=== PATIENT | female | born 1955 | race Two or more races ===

== ENCOUNTER 2021-01-26 06:24 | Inpatient (IN) | payer MEDICAID ==
[2021-01-22 10:43] LABS: Basophils # (auto) 0.1 10 ^3/uL (0-0.2); Basophils % (auto) 0.7 % (0.0-2.0); Eosinophils # (auto) 0.2 10 ^3/uL (0-0.8); Eosinophils % (auto) 2.5 % (0.0-7.0); Lymphocytes # (auto) 2.1 10 ^3/uL (0.4-5.4); Lymphocytes % (auto) 26.2 % (10.0-50.0); Mean Corpuscular Hemoglobin 29.4 pg (28.0-32.0); Mean Corpuscular Hgb Conc. 32.7 g/dL (32.0-36.0); Mean Corpuscular Volume 89.8 fL (80.0-100.0); Monocytes # (auto) 0.6 10 ^3/uL (0-1.3); Monocytes % (auto) 7.3 % (0.0-12.0); Neutrophils % (auto) 63.3 % (37.0-80.0); Red Blood Cells 5.12 10^6/uL (4.0-5.20); Red Cell Distribution Width 13.4 % (11.8-14.3); White Blood Cell 7.8 10^3/uL (4.4-10.8)
[2021-01-22 10:50] LABS: Urine Bacteria FEW /hpf (None Seen); Urine Blood Negative /uL (Negative); Urine Hyaline Cast FEW /lpf (0 - 2); Urine Specific Gravity 1.017 (1.001-1.035); Urine WBC 1 /hpf (0 - 5)
[2021-01-22 10:51] LABS: INR 1.01 (0.9-1.15); Partial Thromboplastin Time 27.8 sec (23.6-33.0)
[2021-01-22 11:03] LABS: Albumin 3.8 g/dL (3.4-5.0); Calcium 8.4 mg/dL (8.5-10.1); Potassium 4.4 mmol/L (3.5-5.1)
[2021-01-22 11:13] LABS: BUN/Creatinine Ratio 22.6; Bilirubin, Total 0.7 mg/dL (0.2-1.0); Total Protein 7.2 g/dL (6.4-8.2)
[~2021-01-26] VITALS: Ht 165.1 cm; Wt 85.5 kg
[2021-01-26] VITALS (15 sets, daily range): BP systolic 101–151; BP diastolic 51–81
[~2021-01-26 06:24] MED LIST: ATOR20TA PO; CHOL200021 PO; LEVO25TA6 PO; LISI2.5T47 PO; METF-371 PO; NAPR375T27 PO; PREG100C PO; SERT50TA19 PO; TOPI50TA53 PO
[2021-01-26] MEDS ORDERED: MORPHINE SULF PF 2 MG/2 ML SYRG ONE ×2 (06:53→07:26)
[2021-01-26] MEDS ORDERED: KETOROLAC TROMETH 60MG/2ML VIAL ONE (06:54)
[2021-01-26] MEDS ORDERED: TRANEXAMIC ACID 20 ML ONE (06:55)
[2021-01-26] MEDS ORDERED: BUPIVACAINE 0.25% INJ 50ML VIAL ONE (06:55)
[2021-01-26] MEDS ORDERED: ceFAZolin 1GM/50ML 100 ML IV ONE (06:56)
[2021-01-26] MEDS ORDERED: ACETAMINOPHEN IV 100 ML IV ONE (06:57)
[2021-01-26] MEDS ORDERED: VANCOMYCIN HCL 1000 MG VL ONE (06:57)
[2021-01-26] MEDS: ACETAMINOPHEN IV 1000 MG/100ML (10MG/ML) IV ONE ×2 (07:00→07:20)
[2021-01-26] MEDS ORDERED: CELECOXIB 100 MG CAP PO ONE (07:00)
[2021-01-26] MEDS ORDERED: PREGABALIN CAPSULE 75 MG CAP PO ONE (07:00)
[2021-01-26] MEDS: CELECOXIB 100 MG CAP ONE ×2 (07:13→07:20)
[2021-01-26] MEDS: PREGABALIN CAPSULE 75 MG CAP ONE ×2 (07:13→07:20)
[2021-01-26] MEDS ORDERED: TETRACAINE 1% INJ 2 ML VIAL IJ ONE (07:20)
[2021-01-26] MEDS ORDERED: DexAMETHasone SOD PHOS 10MG/1ML VIAL INJ IV PRN (09:15)
[2021-01-26] MEDS ORDERED: diphenhdrAMINE HCL 50 MG/1 ML VL IV PRN (09:15)
[2021-01-26] MEDS ORDERED: ONDANSETRON HCL 4 MG/2 ML VIAL IV PRN ×2 (09:15)
[2021-01-26] MEDS ORDERED: KETOROLAC TROMETH 30 MG/ML 1ML VIAL IV PRN ×2 (09:15→09:30)
[2021-01-26] MEDS ORDERED: HYDROmorphone HCL 2 MG/ML VL IV PRN ×2 (09:15→09:30)
[2021-01-26] MEDS ORDERED: NALBUPHINE HCL 10 MG/1ml INJECTION SUBCUT ONE (09:15)
[2021-01-26] MEDS ORDERED: NALOXONE HCL 0.4 MG/ML VIAL IV PRN (09:15)
[2021-01-26] MEDS ORDERED: NITROGLYCERIN 0.4 MG SL TAB SL PRN (09:30)
[2021-01-26] MEDS ORDERED: ACETAMINOPHEN 325 MG TAB PO PRN (09:30)
[2021-01-26] MEDS ORDERED: MORPHINE SULFATE INJECTION 2 MG/ML SYRG IV PRN (09:30)
[2021-01-26] MEDS ORDERED: OXYCODONE W/ ACETAMINOPHEN 5/325MG TABLET PO PRN (09:30)
[2021-01-26] MEDS ORDERED: PROPOFOL 10 MG/ML 20 ML IV ONE (09:31)
[2021-01-26] MEDS: LACTATED RINGER'S 1,000 ML IV SCH ×2 (09:33→19:30)
[2021-01-26] MEDS: ceFAZolin 1GM/50ML 50 ML IV SCH ×3 (10:05→21:47)
[2021-01-26] MEDS: metFORMIN HYDROCHLORIDE 850 MG TAB PO SCH ×2 (11:01→17:41)
[2021-01-26] MEDS: MULTIPLE VITAMIN TAB PO SCH (11:02)
[2021-01-26] MEDS: PANTOPRAZOLE 40 MG TAB PO SCH (11:03)
[2021-01-26] MEDS: TOPIRAMATE 25 MG TAB PO SCH (11:04)
[2021-01-26] MEDS: LISINOPRIL 5 MG TAB PO SCH (11:05)
[2021-01-26] MEDS: SERTRALINE HCL 50 MG TAB PO SCH (11:07)
[2021-01-26] MEDS: ACCU-CHEK COMFORT CURVE STRIP VI SCH ×3 (12:06→21:47)
[2021-01-26] MEDS: SODIUM CHLOR 0.9% PF (SALINE LOCK) 10ML VIAL/SYR IV SCH ×2 (14:22→21:47)
[2021-01-26] MEDS: ATORVASTATIN 20 MG TAB PO SCH (21:47)
[2021-01-27] VITALS (13 sets, daily range): BP systolic 110–134; BP diastolic 55–67
[2021-01-27] MEDS: LACTATED RINGER'S 1,000 ML IV SCH ×2 (05:30→15:30)
[2021-01-27] MEDS: ACCU-CHEK COMFORT CURVE STRIP VI SCH ×4 (05:34→22:25)
[2021-01-27] MEDS: LEVOTHYROXINE SODIUM 50 MCG TAB PO SCH (05:34)
[2021-01-27] MEDS: SODIUM CHLOR 0.9% PF (SALINE LOCK) 10ML VIAL/SYR IV SCH ×3 (05:34→21:21)
[2021-01-27 07:27] LABS: Hematocrit 34.8 % (36.0-46.0); Hemoglobin 11.6 g/dL (12.2-16.2)
[2021-01-27 07:46] LABS: Potassium 3.8 mmol/L (3.5-5.1)
[2021-01-27 07:54] LABS: Albumin 2.8 g/dL (3.4-5.0); BUN/Creatinine Ratio 25.9; Bilirubin, Total 0.5 mg/dL (0.2-1.0); Calcium 7.8 mg/dL (8.5-10.1); Total Protein 5.4 g/dL (6.4-8.2)
[2021-01-27] MEDS: metFORMIN HYDROCHLORIDE 850 MG TAB PO SCH (08:08)
[2021-01-27] MEDS: MULTIPLE VITAMIN TAB PO SCH (09:01)
[2021-01-27] MEDS: TOPIRAMATE 25 MG TAB PO SCH (09:02)
[2021-01-27] MEDS: SERTRALINE HCL 50 MG TAB PO SCH (09:02)
[2021-01-27] MEDS: ENOXAPARIN SOD 40 MG/0.4 ML SYRINGE SC SCH (09:02)
[2021-01-27] MEDS: PANTOPRAZOLE 40 MG TAB PO SCH (09:02)
[2021-01-27] MEDS: LISINOPRIL 5 MG TAB PO SCH (09:03)
[2021-01-27] MEDS ORDERED: hydrALAZINE HCL 20 MG/ML VL IV PRN (16:45)
[2021-01-27] MEDS ORDERED: DEXTROSE (50%) 50ML SYRG IV PRN (16:45)
[2021-01-27] MEDS: HYDROcodone-ACET 10/325MG TAB PO PRN ×2 (17:40→21:20)
[2021-01-27] MEDS: InsuLIN REG 1unit/0.01ml Soln (100units/ml) SC SCH (17:43)
[2021-01-27] MEDS: ATORVASTATIN 20 MG TAB PO SCH (21:20)
[2021-01-27] MEDS ORDERED: InsuLIN REG 1unit/0.01ml Soln (100units/ml) SC SCH (22:00)
[2021-01-28 05:00] VITALS: BP 141/86
[2021-01-28] MEDS: InsuLIN REG 1unit/0.01ml Soln (100units/ml) SC SCH ×3 (06:43→17:00)
[2021-01-28] MEDS: LEVOTHYROXINE SODIUM 50 MCG TAB PO SCH (06:43)
[2021-01-28] MEDS: ACCU-CHEK COMFORT CURVE STRIP VI SCH ×3 (06:43→17:00)
[2021-01-28] MEDS: SODIUM CHLOR 0.9% PF (SALINE LOCK) 10ML VIAL/SYR IV SCH ×2 (06:43→14:27)
[2021-01-28 06:54] LABS: Hematocrit 34.7 % (36.0-46.0); Hemoglobin 11.4 g/dL (12.2-16.2)
[2021-01-28 08:52] VITALS: BP 147/71
[2021-01-28] MEDS: PANTOPRAZOLE 40 MG TAB PO SCH (09:41)
[2021-01-28] MEDS: SERTRALINE HCL 50 MG TAB PO SCH (09:41)
[2021-01-28] MEDS: MULTIPLE VITAMIN TAB PO SCH (09:42)
[2021-01-28] MEDS: TOPIRAMATE 25 MG TAB PO SCH (09:42)
[2021-01-28] MEDS: ENOXAPARIN SOD 40 MG/0.4 ML SYRINGE SC SCH (09:42)
[2021-01-28] MEDS: LISINOPRIL 5 MG TAB PO SCH (10:18)
[2021-01-28 13:00] VITALS: BP 142/72
[2021-01-28] MEDS: HYDROcodone-ACET 10/325MG TAB PO PRN (13:52)
[2021-01-28 15:50] VITALS: BP 142/72
[2021-01-28 16:55] VITALS: BP 155/78
== END 2021-01-28 17:30 | disposition home health service (06) | DRG 326 ==
LOC: SUR 06:24 → CENTRAL 09:19
PROVIDERS: ADMIT Orthopaedic Surgery Adult Reconstructive Orthopaedic Surgery; ATTEND Orthopaedic Surgery Adult Reconstructive Orthopaedic Surgery
PROC: 8E0YXBZ Computer Assisted Procedure of Lower Extremity (ICD-10-PCS; 2021-01-26)
PROC: 0SRD0J9 Replacement of Left Knee Joint with Synthetic Substitute, Cemented, Open Approach (ICD-10-PCS; principal; 2021-01-26 07:23)
DX: M17.12 Unilateral primary osteoarthritis, left knee (principal); E11.40 Type 2 diabetes mellitus with diabetic neuropathy, unspecified; E03.9 Hypothyroidism, unspecified; F32.A Depression, unspecified; G43.909 Migraine, unspecified, not intractable, without status migrainosus; I10 Essential (primary) hypertension; Z20.822 Contact with and (suspected) exposure to COVID-19; Z82.49 Family history of ischemic heart disease and other diseases of the circulatory system; Z88.8 Allergy status to other drugs, medicaments and biological substances
CPT/HCPCS: 36415; 73562; 80053; 81001; 82962; 85014; 85018; 85025; 85610; 85730; 86850; 86900; 86901; 97163; G0378; J0131; J0690; J1815; J1885; J2704; J3490

== ENCOUNTER → 2021-07-02 | Outpatient (CLI) | payer MEDICAID | END | disposition home or self-care (01) | LOC: Rad HDHVI 08:59 | PROVIDERS: ATTEND Internal Medicine Cardiovascular Disease | DX: Z01.810 Encounter for preprocedural cardiovascular examination (principal); R06.02 Shortness of breath | CPT/HCPCS: 93306 ==

== ENCOUNTER → 2021-07-15 | Outpatient (CLI) | payer MEDICAID ==
[~2021-07-15] VITALS: Ht 165.1 cm; Wt 73.5 kg
[~2021-07-15] MED LIST changes: +ADENOSINE 62 MG in GIVE UN-DILUTED 0 ML IV ONE; +ADENOSINE 90 MG/30 ML INJ IV ONE
== END | disposition home or self-care (01) ==
LOC: Rad HDHVI 07:58
PROVIDERS: ATTEND Internal Medicine Cardiovascular Disease
DX: R07.9 Chest pain, unspecified (principal); R06.02 Shortness of breath; R42 Dizziness and giddiness
CPT/HCPCS: 78452; 93005; 96374; 96375; A9500; J0153

== ENCOUNTER 2021-08-02 00:36 | Emergency (ER) | payer MEDICAID ==
[~2021-08-02] VITALS: Ht 165.1 cm; Wt 74.4 kg
[~2021-08-02 00:36] MED LIST changes: -ADENOSINE 62 MG in GIVE UN-DILUTED 0 ML IV ONE; -ADENOSINE 90 MG/30 ML INJ IV ONE
[2021-08-02 04:11] VITALS: BP 132/47
[2021-08-02] MEDS ORDERED: diphenhdrAMINE HCL 50 MG/1 ML VL IM ONE (07:00)
[2021-08-02] MEDS ORDERED: methylPREDNISolone SOD SUCC 125 MG/2 ML VL IM ONE (07:00)
[2021-08-02] MEDS ORDERED: PRED20TA2 PO (07:02)
[2021-08-02] MEDS ORDERED: DIPH25CA66 PO (07:02)
== END 2021-08-02 07:40 | disposition home or self-care (01) ==
LOC: ER 00:36
DX: L50.0 Allergic urticaria (principal); E11.9 Type 2 diabetes mellitus without complications; Z88.1 Allergy status to other antibiotic agents
CPT/HCPCS: 96372; 99284; J1200; J2930